=== PATIENT | female | born 2000 | race Caucasian/White ===

== ENCOUNTER 2019-06-25 18:39 | Emergency (ER) | payer OTHER ==
--- NOTE | 2019-06-25 18:51 | ER Document Report ---
ED Medical Screen (RME) - General Chief Complaint: Leg Pain Stated Complaint: LEFT LEG PAIN Time Seen by Provider: 06/25/19 18:44 Mode of Arrival: Ambulatory Information source: Patient Notes: 19-year-old female presented to ED for complaint of pain to her left lower leg. She states is to the front and the lateral aspect of her leg. She states she went to the urgent care for this pain that is been going on for about a year and they sent her to the emergency room for Doppler. There is no pain to the back of her leg. She has not been on any recent travel she does not smoke and she has not had any recent surgeries. She does have tachycardia at 117 at this time. She states she has not had any energy drinks. She is on Invega for schizoaffective disorder. He denies any symptoms of anything but pain to the left lower leg. She states she does drink socially. She does not have any pedal edema. - HPI Onset: Other - year Onset/Duration: Persistent Quality of pain: Dull, Throbbing Severity: Moderate Pain Level: 4 Associated Symptoms: Other - Left lateral lower leg pain for a year starting today was sent over by urgent care to get a Doppler. denies: Leg swelling Exacerbated by: Denies Relieved by: Denies Similar symptoms previously: Yes Recently seen / treated by doctor: Yes - Related Data Smoking: Non-smoker - States she does vape Frequency of alcohol use: Occasional Drug Abuse: None Allergies/Adverse Reactions: aspirin Allergy (Verified 06/25/19 18:52) NSAIDS (Non-Steroidal Anti-Inflamma Allergy (Verified 06/25/19 18:53) Past Medical History - General Information source: Patient - Social History Cigarette use (# per day): No - Former Frequency of alcohol use: Occasional Drug Abuse: None Lives with: Friend Family history: Reviewed & Not Pertinent - Past Medical History Cardiac Medical History: Reports: None Pulmonary Medical History: Reports: None EENT Medical History: Reports: None Neurological Medical History: Reports: None Endocrine Medical History: Reports: None Renal/ Medical History: Reports: None Malignancy Medical History: Reports: None GI Medical History: Reports: None Musculoskeltal Medical History: Reports None Psychiatric Medical History: Reports: Hx Schizoaffective Disorder Traumatic Medical History: Reports: None Infectious Medical History: Reports: None Past Surgical History: Reports: Other - Skin tumor removed - Immunizations Immunizations up to date: Yes Review of Systems - Review of Systems Constitutional: No symptoms reported EENT: No symptoms reported Cardiovascular: No symptoms reported Respiratory: No symptoms reported Gastrointestinal: No symptoms reported Genitourinary: No symptoms reported Female Genitourinary: No symptoms reported Musculoskeletal: Other - Left lower leg pain lateral and anterior portion no posterior calf pain Skin: No symptoms reported Hematologic/Lymphatic: No symptoms reported Neurological/Psychological: No symptoms reported -: Yes All other systems reviewed and negative Physical Exam - Vital signs Vitals: Temp Pulse Resp BP Pulse Ox 98.2 F 111 H 18 144/78 H 98 06/25/19 18:40 06/25/19 18:40 06/25/19 18:40 06/25/19 18:40 06/25/19 18:40 Interpretation: Normal - General General appearance: Appears well, Alert - HEENT Head: Normocephalic, Atraumatic Eyes: Normal Pupils: PERRL - Respiratory Respiratory status: No respiratory distress Chest status: Nontender Breath sounds: Normal Chest palpation: Normal - Cardiovascular Rhythm: Regular Heart sounds: Normal auscultation Murmur: No - Abdominal Inspection: Normal Distension: No distension Bowel sounds: Normal Tenderness: Nontender Organomegaly: No organomegaly - Back Back: Normal, Nontender - Extremities General upper extremity: Normal inspection, Nontender, Normal color, Normal ROM, Normal temperature General lower extremity: Nontender, Normal ROM. No: Pernell's sign Calf: Tender - Left lateral and anterior leg Ankle: Normal, Nontender Foot: Normal, Nontender - Neurological Neuro grossly intact: Yes Cognition: Normal Orientation: AAOx4 [place] Coma Scale Eye Opening: Spontaneous [place] Coma Scale Verbal: Oriented [place] Coma Scale Motor: Obeys Commands [place] Coma Scale Total: 15 Speech: Normal Motor strength normal: LUE, RUE, LLE, RLE Sensory: Normal - Psychological Associated symptoms: Normal affect, Normal mood - Skin Skin Temperature: Warm Skin Moisture: Dry Skin Color: Normal Course - Re-evaluation Re-evalutation: 06/25/19 20:48 Discussed x-ray and Doppler with patient. Patient was instructed to follow-up with her primary doctor as there is no obvious reasons for her leg pain. There is no bruising no injuries. Pulse is no longer tachycardic. She states she has had this pain for about a year it was just worse today. Patient verbalized understanding and agreement with treatment plan patient was discharged home. - Vital Signs Vital signs: Temp Pulse Resp BP Pulse Ox 98.2 F 111 H 18 144/78 H 98 06/25/19 18:40 06/25/19 18:40 06/25/19 18:40 06/25/19 18:40 06/25/19 18:40 - Diagnostic Test Radiology reviewed: Image reviewed, Reports reviewed Doctor's Discharge - Discharge Clinical Impression: Leg pain Qualifiers: Laterality: left Qualified Code(s): M79.605 - Pain in left leg Condition: Stable Disposition: HOME, SELF-CARE Additional Instructions: Leg Pain, Nonspecific We did not find an obvious cause for your leg pain. There's no sign of blood clot, infection, or other serious disease. Possible causes of vague leg pain include muscle or joint inflammation, disc disease in the lower back, pressure on the nerves in the back, or reduced blood flow through the arteries of the leg. Rest the leg. Pain can be eased with an antiinflammatory pain medicine such as ibuprofen. If the pain involves a small area, a heating pad might help. Call the doctor or return if the leg becomes swollen, weak, discolored, or increasingly painful, or if you develop any other significant change in your health. Today and Dopplers were negative. I did show you pictures of your x-ray and give you a written report of your x-ray. I am not sure of the reason for your leg pain so you will need to follow-up with your primary care doctor. I have repeated your vital signs and you are no longer tachycardic your pulse is now 77 Acetaminophen Acetaminophen may be taken for pain relief or fever control. It's much safer than aspirin, offering a wider range of "safe" dosages. It is safe during . Some brand names are Tylenol, Panadol, Datril, Anacin 3, Tempra, and Liquiprin. Acetaminophen can be repeated every four hours. The following are maximum recommended dosages: WEIGHT Dose Drops Elixir Chewable(80mg) (LBS.) drprs=droppers tsp=teaspoon 6 40 mg .4 ml (1/2) 6-11 80 mg .8 ml (full) 1/2 tsp 1 tab 12-16 120 mg 1 1/2 drprs 3/4 tsp 1 1/2 tabs 17-23 160 mg 2 drprs 1 tsp 2 tabs 24-30 240 mg 3 drprs 1 1/2 tsp 3 tabs 30-35 320 mg 2 tsp 4 tabs 36-41 360 mg 2 1/4 tsp 4 1/2 tabs 42-47 400 mg 2 1/2 tsp 5 tabs 48-53 480 mg 3 tsp 6 tabs 54-59 520 mg 3 1/4 tsp 6 1/2 tabs 60-64 560 mg 3 1/2 tsp 7 tabs 65-70 600 mg 3 3/4 tsp 7 1/2 tabs 71-76 640 mg 4 tsp 8 tabs 77-82 720 mg 4 1/2 tsp 9 tabs 83-88 800 mg 5 tsp 10 tabs >89 pounds or adults 650 mg to 900 mg Acetaminophen can be repeated every four hours. Maximum daily dose not to exceed 4000 mg. These maximum recommended dosages are slightly higher than the dosages written on the product container, but these dosages are very safe and well below the toxic dosage for acetaminophen. Ibuprofen Ibuprofen is an excellent, safe drug for pain control. In addition, it has potent antiinflammatory effects which are beneficial, especially in the treatment of injuries, arthritis, or tendonitis. It's best to take ibuprofen with food. Persons with ulcer disease or allergy to aspirin should notify their physician of this before taking ibuprofen. Take the medication exactly as prescribed. Don't take additional doses unless instructed to do so by your doctor. If you develop wheezing, shortness of breath, hives, faintness, stomach pain, vomiting, or dark black stools, return for re-evaluation at once. Ice & Elevation Apply ice packs frequently against the painful area. Many different schedules are recommended, such as "20 minutes on, 20 minutes off" or "one hour ice, two hours rest." If you need to work, you may need to go longer between ice treatments. You should plan to have the area ice packed AT LEAST one-fourth of the time. The ice should be applied over the wrap, tape, or splint, or over a layer of cloth -- not directly against the skin. Some ice bags have a built-in cloth and can be put directly on the skin. Your injured part should be elevated as much as possible over the next 48 hours. Try to keep the injury above the level of the heart. Avoid use of the injured area. Elevation and rest will decrease the swelling. FOLLOW-UP CARE: If you have been referred to a physician for follow-up care, call the physicians office for an appointment as you were instructed or within the next two days. If you experience worsening or a significant change in your symptoms, notify the physician immediately or return to the Emergency Department at any time for re-evaluation. Forms: Elevated Blood Pressure Referrals: SHARON DOMINGUEZ MD [Primary Care Provider] - Follow up in 3-5 days
--- NOTE | 2019-06-25 19:15 | RADIOLOGY REPORT (SQ) ---
EXAM DESCRIPTION: TIBIA FIBULA LEFT COMPLETED DATE/TIME: 06/25/2019 7:08 pm REASON FOR STUDY: pain in left lower leg COMPARISON: None. NUMBER OF VIEWS: Two views. TECHNIQUE: Two radiographic images acquired of the left tibia and fibula to include the knee and ank le in at least one projection. LIMITATIONS: None. FINDINGS: MINERALIZATION: Normal. BONES: No acute fracture or dislocation. No worrisome bone lesions. No significant osteophytes. SOFT TISSUES: No obvious swelling or foreign body. OTHER: No other significant finding. IMPRESSION: NEGATIVE STUDY OF THE LEFT TIBIA AND FIBULA. NO EXPLANATION FOR PAIN. TECHNICAL DOCUMENTATION: JOB ID: [id number] [employer]- All Rights Reserved Reading location - IP/workstation name: [email or web address]
[2019-06-25] MEDS ORDERED: ACETAMINOPHEN 325 MG TABLET PO ONE (19:24)
[2019-06-25 20:47] VITALS: BP 119/72
--- NOTE | 2019-06-26 08:08 | XCELERA REPORT ---
[address] [place] [facility] [id number] Lower Extremity Venous Evaluation Procedure: Color flow and duplex imaging of the veins of the left lower extremity as well as the right Common Femoral vein. Right Sided Venous Evaluation The right common femoral vein is fully compressible. Spontaneous and phasic flow is present in the right common femoral vein. Left Sided Venous Evaluation Normal vessel filling wall to wall, compression and augmentation as well as Colour flow down to the infrageniculate veins. Interpretation Summary No duplex evidence of DVT or obstruction in the left lower extremity nor in the right Common Femoral vein. Name: MAY CASSY A Age: 19 yrs Gender: Female : 2000 Patient Status: Emergency Patient Location: ER Study Date: 06/25/2019 08:19 PM Reason For Study: left lower leg Ordering Physician: CHUCKY WALLER Performed By: Smiley Coppola : CHUCKY WALLER > Arpit Quiros
== END 2019-06-25 20:55 | disposition home or self-care (01) ==
LOC: ER 18:39
DX: M79.662 Pain in left lower leg (principal); R00.0 Tachycardia, unspecified; F25.9 Schizoaffective disorder, unspecified; Z79.899 Other long term (current) drug therapy; Z88.8 Allergy status to other drugs, medicaments and biological substances
CPT/HCPCS: 93971; 99283

== ENCOUNTER 2019-07-23 20:15 | Emergency (ER) | payer OTHER ==
[2019-07-23 20:40] VITALS: BP 114/70
--- NOTE | 2019-07-23 20:58 | ER Document Report ---
ED Medical Screen (RME) - General Stated Complaint: BILATERAL ARM PIT PAIN Time Seen by Provider: 07/23/19 20:55 Primary Care Provider: SHARON DOMINGUEZ MD [Primary Care Provider] - Follow up as needed Notes: 19 y/o female presents for 1.5 week history of bilateral arm pit swelling. States she thinks her lymph nodes are swollen. Denies fever. States she feels bumps. Bilateral arm pit exam limited in triage but do not feel overly swollen. I have greeted and performed a rapid initial assessment of this patient. A comprehensive ED assessment and evaluation of the patient, analysis of test results and completion of the medical decision making process with be conducted by additional ED providers. TRAVEL OUTSIDE OF THE [place] IN LAST 30 DAYS: No - Related Data Allergies/Adverse Reactions: aspirin Allergy (Verified 06/25/19 18:52) NSAIDS (Non-Steroidal Anti-Inflamma Allergy (Verified 06/25/19 18:53) Past Medical History - Social History Family history: Reviewed & Not Pertinent Psychiatric Medical History: Reports: Hx Schizoaffective Disorder, Hx Schizophrenia Past Surgical History: Reports: Other - Skin tumor removed - Immunizations Immunizations up to date: Yes Physical Exam - Vital signs Vitals: Temp Pulse Resp BP Pulse Ox 98.6 F 79 20 114/70 100 07/23/19 20:39 07/23/19 20:39 07/23/19 20:39 07/23/19 20:39 07/23/19 20:39 Course - Vital Signs Vital signs: Temp Pulse Resp BP Pulse Ox 98.6 F 79 20 114/70 100 07/23/19 20:39 07/23/19 20:39 07/23/19 20:39 07/23/19 20:39 07/23/19 20:39 Doctor's Discharge - Discharge Referrals: SHARON DOMINGUEZ MD [Primary Care Provider] - Follow up as needed
[2019-07-23 21:26] LABS: ABSOLUTE BASOPHILS # (AUTO) 0.1 10^3/uL (0.0-0.2); ABSOLUTE EOSINOPHILS # (AUTO) 0.8 10^3/uL (0.0-0.6); ABSOLUTE MONOCYTES (AUTO) 0.6 10^3/uL (0.1-1.4); ABSOLUTE NEUT (AUTO) 6.6 10^3/uL (1.7-8.2); BASOPHILS % (AUTO) 0.9 % (0-2); EOSINOPHILS % (AUTO) 6.8 % (0-6); HEMATOCRIT 42.3 % (36.0-47.0); HEMOGLOBIN 14.6 g/dL (12.0-15.5); LYMPHOCYTES % (AUTO) 27.3 % (13-45); MEAN CORPUSCULAR HGB CONC 34.4 g/dL (32.0-36.0); MEAN CORPUSCULAR VOLUME 87 fl (80-97); MONOCYTES % (AUTO) 5.8 % (3-13); PLATELET COUNT 311 10^3/uL (150-450); RED BLOOD COUNT 4.85 10^6/uL (3.72-5.28); RED CELL DISTRIBUTION WIDTH 12.4 % (11.5-14.0); SEGMENTED NEUTROPHILS % (AUTO) 59.2 % (42-78); TOTAL CELLS COUNTED % (AUTO) 100 %; WHITE BLOOD COUNT 11.1 10^3/uL (4.0-10.5)
[2019-07-23 21:38] LABS: ALBUMIN 4.8 g/dL (3.5-5.0); ALKALINE PHOSPHATASE 57 U/L (38-126); ANION GAP 11 (5-19); ASPARTATE AMINO TRANSFERASE 25 U/L (14-36); BILIRUBIN,TOTAL 0.5 mg/dL (0.2-1.3); BLOOD UREA NITROGEN 14 mg/dL (7-20); CALCIUM 10.2 mg/dL (8.4-10.2); CARBON DIOXIDE 25 mmol/L (22-30); CHLORIDE 103 mmol/L (98-107); GLUCOSE 95 mg/dL (75-110); POTASSIUM 4.3 mmol/L (3.6-5.0); TOTAL PROTEIN 7.4 g/dL (6.3-8.2)
== END 2019-07-24 01:52 | disposition left against medical advice (07) ==
LOC: ER 20:15
DX: M79.622 Pain in left upper arm (principal); M79.621 Pain in right upper arm; Z88.8 Allergy status to other drugs, medicaments and biological substances; Z53.20 Procedure and treatment not carried out because of patient's decision for unspecified reasons
CPT/HCPCS: 36415; 80053; 84703; 85025; 99281

== ENCOUNTER 2019-08-12 18:30 | Emergency (ER) | payer OTHER ==
--- NOTE | 2019-08-12 20:13 | ER Document Report ---
ED Medical Screen (RME) - General Stated Complaint: ABDOMINAL PAIN Time Seen by Provider: 08/12/19 20:06 Primary Care Provider: SHARON DOMINGUEZ MD [Primary Care Provider] - Follow up as needed Mode of Arrival: Ambulatory Information source: Patient Notes: 19-year-old female with history of schizoaffective disorder presents to the emergency department with sudden onset abdominal pain that started this afternoon. Reports she took a nap and woke up and her abdomen was hurting. She denies fever vomiting diarrhea. Denies pain with void. Denies chronic abdominal issues. Denies . She does report that she was at the [facility] earlier today and they did a biopsy of something on her vaginal area. Patient reports she took a Tylenol did help with the symptoms. Patient was requesting an MRI to make sure everything was okay. She was instructed on labs and urine to check for an infection. She verbalized understanding to all instructions. I have greeted and performed a rapid initial assessment of this patient. A comprehensive ED assessment and evaluation of the patient, analysis of test results and completion of the medical decision making process will be conducted by additional ED providers. TRAVEL OUTSIDE OF THE [place] IN LAST 30 DAYS: No - Related Data Allergies/Adverse Reactions: aspirin Allergy (Verified 06/25/19 18:52) NSAIDS (Non-Steroidal Anti-Inflamma Allergy (Verified 06/25/19 18:53) Past Medical History - Social History Family history: Reviewed & Not Pertinent Psychiatric Medical History: Reports: Hx Schizoaffective Disorder, Hx Schizophrenia Past Surgical History: Reports: Other - Skin tumor removed - Immunizations Immunizations up to date: Yes Physical Exam - Vital signs Vitals: Temp Pulse Resp BP Pulse Ox 98.6 F 90 16 130/72 H 98 08/12/19 18:37 08/12/19 18:37 08/12/19 18:37 08/12/19 18:37 08/12/19 18:37 Course - Vital Signs Vital signs: Temp Pulse Resp BP Pulse Ox 98.6 F 90 16 130/72 H 98 08/12/19 18:37 08/12/19 18:37 08/12/19 18:37 08/12/19 18:37 08/12/19 18:37 Doctor's Discharge - Discharge Referrals: SHARON DOMINGUEZ MD [Primary Care Provider] - Follow up as needed
[2019-08-12 20:50] LABS: ABSOLUTE BASOPHILS # (AUTO) 0.1 10^3/uL (0.0-0.2); ABSOLUTE EOSINOPHILS # (AUTO) 0.8 10^3/uL (0.0-0.6); ABSOLUTE MONOCYTES (AUTO) 0.6 10^3/uL (0.1-1.4); ABSOLUTE NEUT (AUTO) 5.1 10^3/uL (1.7-8.2); BASOPHILS % (AUTO) 0.7 % (0-2); HEMATOCRIT 42.2 % (36.0-47.0); HEMOGLOBIN 14.9 g/dL (12.0-15.5); LYMPHOCYTES % (AUTO) 31.9 % (13-45); MEAN CORPUSCULAR HEMOGLOBIN 30.5 pg (27.0-33.4); MEAN CORPUSCULAR HGB CONC 35.4 g/dL (32.0-36.0); MEAN CORPUSCULAR VOLUME 86 fl (80-97); MONOCYTES % (AUTO) 6.1 % (3-13); PLATELET COUNT 284 10^3/uL (150-450); RED CELL DISTRIBUTION WIDTH 12.6 % (11.5-14.0); SEGMENTED NEUTROPHILS % (AUTO) 53.3 % (42-78); TOTAL CELLS COUNTED % (AUTO) 100 %; WHITE BLOOD COUNT 9.5 10^3/uL (4.0-10.5)
[2019-08-12 20:51] LABS: APPEARANCE,URINE SLIGHTLY-CLOUDY; BILIRUBIN,URINE NEGATIVE (NEGATIVE); COLOR,URINE YELLOW; GLUCOSE, URINE NEGATIVE (NEGATIVE); KETONES,URINE NEGATIVE (NEGATIVE); LEUKOCYTE ESTERASE,URINE TRACE (NEGATIVE); NITRITE,URINE NEGATIVE (NEGATIVE); PROTEIN,URINE NEGATIVE (NEGATIVE); URINE SPECIFIC GRAVITY 1.008; UROBILINOGEN,URINE NEGATIVE mg/dL (<2.0)
[2019-08-12 21:02] LABS: ADD MANUAL MICROSCOPIC YES; BACTERIA,URINE TRACE /HPF; RBC,URINE 0-1 /HPF
[2019-08-12 21:10] LABS: ALBUMIN 4.9 g/dL (3.5-5.0); ALKALINE PHOSPHATASE 63 U/L (38-126); ANION GAP 12 (5-19); ASPARTATE AMINO TRANSFERASE 30 U/L (14-36); BILIRUBIN,DIRECT 0.3 mg/dL (0.0-0.4); BILIRUBIN,TOTAL 0.4 mg/dL (0.2-1.3); BLOOD UREA NITROGEN 6 mg/dL (7-20); CALCIUM 10.1 mg/dL (8.4-10.2); CARBON DIOXIDE 28 mmol/L (22-30); CHLORIDE 101 mmol/L (98-107); GLUCOSE 86 mg/dL (75-110); POTASSIUM 4.6 mmol/L (3.6-5.0); TOTAL PROTEIN 8.2 g/dL (6.3-8.2)
--- NOTE | 2019-08-12 21:38 | ER Document Report ---
ED GI/ - General Chief Complaint: Abdominal Pain Stated Complaint: ABDOMINAL PAIN Time Seen by Provider: 08/12/19 20:06 Primary Care Provider: SHARON DOMINGUEZ MD [Primary Care Provider] - Follow up in 3-5 days Mode of Arrival: Ambulatory Notes: Patient is a 19-year-old female that comes to the emergency department for chief complaint of abdominal pain. She states she woke up with abdominal pain this evening. She states she did have a "vulvar biopsy" by [facility] RN today, she states she did not have a pelvic exam or any internal or cervical biopsies. She states she is not bleeding or having any discharge. She denies dysuria, flank pain, fever, vomiting. She reports normal bowel movement earlier. She denies any abdominal surgeries, she does report a history of ovarian cysts, she states she is sexually active with only her and she is not concerned she has an STD. She states she is hoping that she can "get an MRI of the abdomen to make sure everything is okay". Patient does have a history of schizoaffective disorder. TRAVEL OUTSIDE OF THE [place] IN LAST 30 DAYS: No - Related Data Allergies/Adverse Reactions: aspirin Allergy (Verified 06/25/19 18:52) NSAIDS (Non-Steroidal Anti-Inflamma Allergy (Verified 06/25/19 18:53) Home Medications: Invega Past Medical History - General Information source: Patient - Social History Smoking Status: Current Every Day Smoker Chew tobacco use (# tins/day): No Frequency of alcohol use: None Drug Abuse: None Lives with: Family Family History: Reviewed & Not Pertinent Patient has suicidal ideation: No Patient has homicidal ideation: No Psychiatric Medical History: Reports: Hx Schizoaffective Disorder, Hx Schizophrenia Past Surgical History: Reports: Other - Skin tumor removed - Immunizations Immunizations up to date: Yes Review of Systems - Review of Systems Constitutional: No symptoms reported EENT: No symptoms reported Cardiovascular: No symptoms reported Respiratory: No symptoms reported Gastrointestinal: See HPI Genitourinary: No symptoms reported Female Genitourinary: See HPI Musculoskeletal: No symptoms reported Skin: No symptoms reported Hematologic/Lymphatic: No symptoms reported Neurological/Psychological: No symptoms reported Physical Exam - Vital signs Vitals: Temp Pulse Resp BP Pulse Ox 98.6 F 90 16 130/72 H 98 08/12/19 18:37 08/12/19 18:37 08/12/19 18:37 08/12/19 18:37 08/12/19 18:37 - Notes Notes: GENERAL: Alert, interacts well. No acute distress. HEAD: Normocephalic, atraumatic. EYES: Pupils equal, round, and reactive to light. Extraocular movements intact. ENT: Oral mucosa moist, tongue midline. Oropharynx unremarkable. Airway patent. LUNGS: Clear to auscultation bilaterally, no wheezes, rales, or rhonchi. No respiratory distress. HEART: Regular rate and rhythm. No murmur ABDOMEN: There is some mild generalized tenderness, there appears to be slightly more tenderness in the left lower quadrant but there is no guarding. No rigidity. No rebound tenderness. Normal bowel sounds. GENITOURINARY: Deferred EXTREMITIES: Moves all 4 extremities spontaneously. No edema, normal radial and dorsalis pedis pulses bilaterally. No cyanosis. BACK: no cervical, thoracic, lumbar midline tenderness. No saddle anesthesia, normal distal neurovascular exam. Moves all extremities in full range of motion. NEUROLOGICAL: Alert and oriented x3. Normal speech. Cranial nerves II through X II grossly intact. PSYCH: Normal affect, normal mood. Asks questions repeatedly SKIN: Warm, dry, normal turgor. No rashes or lesions noted. Course - Re-evaluation Re-evalutation: Patient is talkative and well-appearing. CBC unremarkable, chemistry unremarkable, negative, urinalysis slightly borderline. I recommended a pelvic exam because of patient's location of pain (lower abdominal/pelvic area on the left especially), she declined. She states she wants imaging to make sure "nothing is wrong. I did offer a KUB and ultrasound to evaluate her overall symptoms, however patient refused. Patient insists that she needs an MRI of the abdomen. I discussed this with her. She states that if her biopsy comes back as cancer she needs to make sure that she does not have a mass in her abdomen. Patient has no difficulty with bowel movements, denies weight loss, fever/chills, or family history of either melanoma, colon cancer, or other reported cancers. In addition to this patient has a benign abdomen, unremarka ble vital signs, unremarkable work-up, and I have very low suspicion of acute abdomen. Explained to her that MRI is not the initial test, she needs to obtain results from biopsy, I did recommend the x-ray and ultrasound to evaluate her symptoms today. Patient states understanding and agreement. Patient changed her mind, she states she does not want any imaging offered and she wants to leave. Patient was provided with discharge instructions, follow-up instructions, return precautions. Stable at time of discharge. - Vital Signs Vital signs: Temp Pulse Resp BP Pulse Ox 98.5 F 84 20 129/68 H 100 08/12/19 22:10 08/12/19 22:10 08/12/19 22:10 08/12/19 22:10 08/12/19 22:10 - Laboratory Result Diagrams: 08/12/19 20:23 08/12/19 20:23 Laboratory results interpreted by me: 08/12/19 08/12/19 08/12/19 20:23 20:23 20:23 Eos % (Auto) 8.0 H Absolute Eos (auto) 0.8 H BUN 6 L Urine Blood SMALL H Ur Leukocyte Esterase TRACE H Urine Ascorbic Acid 40 H Discharge - Discharge Clinical Impression: Abdominal pain Qualifiers: Abdominal location: generalized Qualified Code(s): R10.84 - Generalized abdominal pain Condition: Stable Disposition: HOME, SELF-CARE Additional Instructions: Your initial evaluation, vital signs, and work-up are reassuring. You have declined offered imaging at this time. Follow-up with your primary care for additional evaluation of abdominal pain and to obtain your results from your biopsy. Return if you worsen including returned/severe worsening pain, fever, vomiting, or any other concerning or worsening symptoms. Referrals: SHARON DOMINGUEZ MD [Primary Care Provider] - Follow up in 3-5 days
[2019-08-12 22:17] VITALS: BP 126/68
== END 2019-08-12 22:10 | disposition home or self-care (01) ==
LOC: ER 18:30
DX: R10.84 Generalized abdominal pain (principal); F17.200 Nicotine dependence, unspecified, uncomplicated; F25.9 Schizoaffective disorder, unspecified; Z79.899 Other long term (current) drug therapy; Z98.890 Other specified postprocedural states; Z88.8 Allergy status to other drugs, medicaments and biological substances
CPT/HCPCS: 36415; 80053; 81001; 81025; 85025; 99284

== ENCOUNTER → 2019-09-10 | Outpatient (CLI) | payer OTHER ==
--- NOTE | 2019-09-10 10:18 | RADIOLOGY REPORT (SQ) ---
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 TECHNIQUE: Multiplanar imaging includes noncontrasted T1, T2, FLAIR, diffusion with ADC map and post gadolinium contrast T1 sequences. Images stored on PACS. CONTRAST TYPE AND DOSE: 15 mL Dotarem. RENAL FUNCTION: Not indicated. ACR Type II contrast agent associated with few, if any, unconfounded cases of NSF LIMITATIONS: None. FINDINGS: ANATOMY: No anomalies. Normal vascular flow voids. Pituitary fossa normal. Normal enhance ment of the pituitary gland. No evidence of micro or macroadenoma. CSF SPACES: Normal in size and contour. No hemorrhage. CEREBRUM: Sulci and gyri normal in size and contour. Normal white matter signal on FLAIR imaging. No evidence of hemorrhage, mass, or extraaxial fluid collection. No abnormal enhancement post contrast. POSTERIOR FOSSA: No signal alteration. No hemorrhage. No edema, masses, or mass effect. Internal hillary tory canals, cerebellopontine angles, mastoids normal. No enhancing lesions. No abnormal enhancement post contrast. DIFFUSION IMAGING: Negative for acute or subacute infarction. ORBITS: No masses. Globes normal. PARANASAL SINUSES: No fluid levels. Mucosa normal. OTHER: No other significant finding. IMPRESSION: Normal MRI the brain with and without contrast with thin-section images through the pitu itary gland. EVIDENCE OF ACUTE STROKE: NO. TECHNICAL DOCUMENTATION: JOB ID: [id number] 2010 [employer]- All Rights Reserved Reading location - IP/workstation name: [email or web address]
== END ==
LOC: RAD 08:55
PROVIDERS: ATTEND Obstetrics & Gynecology Gynecology
DX: E22.1 Hyperprolactinemia (principal)
CPT/HCPCS: 70553; A9576

== ENCOUNTER 2019-10-29 23:17 | Emergency (ER) | payer OTHER ==
--- NOTE | 2019-10-30 00:35 | ER Document Report ---
HPI - HPI Patient complains to provider of: Concern about tattoo Onset: This evening Onset/Duration: Gradual Pain Level: Denies Context: Patient states she had a tattoo performed in someone's home. Patient states that during the session the tone artist apprentice told her that he does lots of tattoos on IV drug abusers. Patient is uncertain if the equipment was sterilized and is concerned that she may have been exposed to hepatitis or HIV and would like to be tested. Patient also is seeking postexposure treatment for HIV. Patient states that she has previously received a hepatitis B vaccination. Associated Symptoms: None Exacerbated by: Denies Similar symptoms previously: No Recently seen / treated by doctor: No - ROS ROS below otherwise negative: Yes Systems Reviewed and Negative: Yes All other systems reviewed and negative - CONSTITUTIONAL Constitutional: DENIES: Fever, Chills - REPRODUCTIVE Reproductive: DENIES: : - DERM Skin Color: Normal Skin Problems: None Past Medical History - General Information source: Patient - Social History Smoking Status: Current Every Day Smoker Frequency of alcohol use: Occasional Drug Abuse: None Occupation: None Family History: Reviewed & Not Pertinent Psychiatric Medical History: Reports: Hx Schizoaffective Disorder, Hx Schi zophrenia Surgical Hx: Negative Past Surgical History: Reports: Other - Skin tumor removed - Immunizations Immunizations up to date: Yes Vertical Provider Document - CONSTITUTIONAL Agree With Documented VS: Yes Exam Limitations: No Limitations General Appearance: WD/WN, No Apparent Distress - INFECTION CONTROL TRAVEL OUTSIDE OF THE [place] IN LAST 30 DAYS: No - HEENT HEENT: Atraumatic, Normocephalic - NECK Neck: Normal Inspection - RESPIRATORY Respiratory: Breath Sounds Normal, No Respiratory Distress - CARDIOVASCULAR Cardiovascular: Regular Rate, Regular Rhythm - NEURO Level of Consciousness: Awake, Alert, Appropriate Motor/Sensory: No Motor Deficit - DERM Integumentary: Warm, Dry Notes: New tattoo to right anterior shoulder with minimal erythema surrounding site Course - Re-evaluation Re-evalutation: 10/30/19 00:35 Patient concerned about possible exposure to HIV and hepatitis and would like to be screened and started on postexposure prophylaxis at this time. 10/30/19 01:43 Patient without any liver function abnormality and is not . Will start patient on postexposure prophylaxis per her request. Patient be encouraged to follow-up with her primary doctor or the health department for additional treatment. - Vital Signs Vital signs: Temp Pulse Resp BP Pulse Ox 98.1 F 103 H 15 135/76 H 97 10/30/19 00:07 10/30/19 00:07 10/30/19 00:07 10/30/19 00:07 10/30/19 00:07 - Laboratory Result Diagrams: 10/30/19 01:04 10/30/19 01:04 Discharge - Discharge Clinical Impression: Tattoo, concern about blood borne pathogen expos Condition: Stable Disposition: HOME, SELF-CARE Instructions: H.I.V. Information ([facility]) Additional Instructions: Return immediately for any new or worsening symptoms Followup with your primary care provider, call tomorrow to make a followup appointment. You may need to stay on the antivirals for at least a month, your primary doctor can refill this medication for you. Hepatitis panel is pending at this time. Prescriptions: Raltegravir Potassium [Isentress 400 mg Tablet] 400 mg PO BID #14 tablet Emtricitabine/Tenofovir [Truvada Tablet] 1 each PO DAILY #7 tablet Referrals: SHARON DOMINGUEZ MD [Primary Care Provider] - Follow up tomorrow
[2019-10-30 01:23] LABS: ABSOLUTE EOSINOPHILS # (AUTO) 0.4 10^3/uL (0.0-0.6); ABSOLUTE LYMPHOCYTES (AUTO) 3.3 10^3/uL (0.5-4.7); ABSOLUTE NEUT (AUTO) 7.2 10^3/uL (1.7-8.2); BASOPHILS % (AUTO) 0.4 % (0-2); EOSINOPHILS % (AUTO) 3.2 % (0-6); HEMOGLOBIN 13.8 g/dL (12.0-15.5); LYMPHOCYTES % (AUTO) 27.8 % (13-45); MEAN CORPUSCULAR HEMOGLOBIN 30.8 pg (27.0-33.4); MEAN CORPUSCULAR HGB CONC 36.3 g/dL (32.0-36.0); MEAN CORPUSCULAR VOLUME 85 fl (80-97); MONOCYTES % (AUTO) 8.4 % (3-13); PLATELET COUNT 288 10^3/uL (150-450); RED BLOOD COUNT 4.49 10^6/uL (3.72-5.28); RED CELL DISTRIBUTION WIDTH 12.5 % (11.5-14.0); SEGMENTED NEUTROPHILS % (AUTO) 60.2 % (42-78); TOTAL CELLS COUNTED % (AUTO) 100 %
[2019-10-30 01:39] LABS: ALBUMIN 4.8 g/dL (3.5-5.0); ALKALINE PHOSPHATASE 67 U/L (38-126); ANION GAP 10 (5-19); ASPARTATE AMINO TRANSFERASE 25 U/L (14-36); BILIRUBIN,TOTAL 0.4 mg/dL (0.2-1.3); BLOOD UREA NITROGEN 12 mg/dL (7-20); CALCIUM 9.7 mg/dL (8.4-10.2); CARBON DIOXIDE 26 mmol/L (22-30); CHLORIDE 104 mmol/L (98-107); GLUCOSE 93 mg/dL (75-110); POTASSIUM 4.1 mmol/L (3.6-5.0); TOTAL PROTEIN 7.8 g/dL (6.3-8.2)
[2019-10-30] MEDS ORDERED: EMTRICITABINE/TENOFOVIR 200-300 MG TAB (3 TAB/ER DISP) PO PRN (02:52)
[2019-10-30] MEDS ORDERED: RALTEGRAVIR 400 MG TAB (6 TAB/ER DISP) PO PRN (02:52)
[2019-10-30 03:23] VITALS: BP 130/72
[2019-10-31 07:38] LABS: HEPATITS B SURFACE ANTIGEN Negative (Negative)
[2019-10-31 08:36] LABS: HEPATITIS C VIRUS ANTIBODY <0.1 s/co ratio (0.0-0.9)
== END 2019-10-30 03:23 | disposition home or self-care (01) ==
LOC: ER 23:17
DX: Z20.6 Contact with and (suspected) exposure to human immunodeficiency virus [HIV] (principal); Z20.5 Contact with and (suspected) exposure to viral hepatitis; Z11.4 Encounter for screening for human immunodeficiency virus [HIV]; Z13.89 Encounter for screening for other disorder; F17.200 Nicotine dependence, unspecified, uncomplicated
CPT/HCPCS: 36415; 80053; 80074; 84703; 85025; 86701; 99283

== ENCOUNTER 2019-12-12 23:40 | Emergency (ER) | payer OTHER ==
--- NOTE | 2019-12-13 00:26 | ER Document Report ---
ED Medical Screen (RME) - General Chief Complaint: Blurred Vision Stated Complaint: BLURRY VISION Primary Care Provider: SHARON DOMINGUEZ MD [Primary Care Provider] - Follow up as needed Notes: Patient is a 19-year-old white female with a history of schizoaffective disorder and autism spectrum who presents to the emergency department with a chief complaint of seizure that occurred prior to arrival. Patient reports she had a few seizures as a small child but was never diagnosed formally with epilepsy or told why these occurred. She does not take any seizure medications. She states tonight she was sitting on the couch watching TV when she had blurry vision in the right medial half of her vision in the right eye. She called her from the other room, he told her to lie down and then she states she does not recall what happened next. She states her told her when she came to that it appeared as though she had a seizure. He reports that her eyes were rolling back in her head and she had generalized shaking. Patient does not admit to any incontinence during this. Denies any dental or tongue injuries. Denies any new medicines, drugs, alcohol or any other substances. No pains or complaints otherwise at this time with the exception of the ongoing blurred vision in the right eye. I have treated and performed a rapid initial assessment of this patient. A comprehensive ED assessment and evaluation of the patient, analysis of test results and completion of medical decision making process will be conducted by additional ED providers. PHYSICAL EXAMINATION: GENERAL: Well-appearing, well-nourished and in no acute distress. A&Ox4. Answers questions appropriately. TRAVEL OUTSIDE OF THE [place] IN LAST 30 DAYS: No - Related Data Allergies/Adverse Reactions: aspirin Allergy (Verified 10/30/19 01:09) NSAIDS (Non-Steroidal Anti-Inflamma Allergy (Verified 10/30/19 01:09) Past Medical History - Social History Family history: Reviewed & Not Pertinent Psychiatric Medical History: Reports: Hx Depression, Hx Schizoaffective Disorder, Hx Schizophrenia Past Surgical History: Reports: Other - Skin tumor removed - Immunizations Immunizations up to date: Yes Physical Exam - Vital signs Vitals: Temp Pulse Resp BP Pulse Ox 98.9 F 92 20 131/77 H 95 12/12/19 23:52 12/12/19 23:52 12/12/19 23:52 12/12/19 23:52 12/12/19 23:52 Course - Vital Signs Vital signs: Temp Pulse Resp BP Pulse Ox 98.9 F 92 20 131/77 H 95 12/12/19 23:52 12/12/19 23:52 12/12/19 23:52 12/12/19 23:52 12/12/19 23:52 Doctor's Discharge - Discharge Referrals: SHARON DOMINGUEZ MD [Primary Care Provider] - Follow up as needed
[2019-12-13 00:59] LABS: ABSOLUTE BASOPHILS # (AUTO) 0.1 10^3/uL (0.0-0.2); ABSOLUTE EOSINOPHILS # (AUTO) 0.7 10^3/uL (0.0-0.6); ABSOLUTE LYMPHOCYTES (AUTO) 3.6 10^3/uL (0.5-4.7); ABSOLUTE NEUT (AUTO) 7.4 10^3/uL (1.7-8.2); BASOPHILS % (AUTO) 0.5 % (0-2); EOSINOPHILS % (AUTO) 5.5 % (0-6); HEMATOCRIT 39.8 % (36.0-47.0); HEMOGLOBIN 13.9 g/dL (12.0-15.5); LYMPHOCYTES % (AUTO) 28.1 % (13-45); MEAN CORPUSCULAR HEMOGLOBIN 29.8 pg (27.0-33.4); MEAN CORPUSCULAR VOLUME 85 fl (80-97); MONOCYTES % (AUTO) 7.7 % (3-13); PLATELET COUNT 287 10^3/uL (150-450); RED BLOOD COUNT 4.66 10^6/uL (3.72-5.28); RED CELL DISTRIBUTION WIDTH 12.7 % (11.5-14.0); SEGMENTED NEUTROPHILS % (AUTO) 58.2 % (42-78); TOTAL CELLS COUNTED % (AUTO) 100 %; WHITE BLOOD COUNT 12.7 10^3/uL (4.0-10.5)
[2019-12-13 01:13] LABS: ALBUMIN 4.6 g/dL (3.5-5.0); ALKALINE PHOSPHATASE 75 U/L (38-126); ANION GAP 10 (5-19); ASPARTATE AMINO TRANSFERASE 24 U/L (14-36); BILIRUBIN,TOTAL 0.3 mg/dL (0.2-1.3); BLOOD UREA NITROGEN 13 mg/dL (7-20); CALCIUM 9.8 mg/dL (8.4-10.2); CARBON DIOXIDE 24 mmol/L (22-30); CHLORIDE 104 mmol/L (98-107); CREATINE KINASE 53 U/L (30-135); GLUCOSE 84 mg/dL (75-110); POTASSIUM 4.2 mmol/L (3.6-5.0); TOTAL PROTEIN 7.5 g/dL (6.3-8.2)
--- NOTE | 2019-12-13 01:42 | RADIOLOGY REPORT (SQ) ---
EXAM DESCRIPTION: XR CHEST 1 VIEW COMPLETED DATE/TME: 12/13/2019 00:23 CLINICAL HISTORY: seizure COMPARISON: None. FINDINGS: Single frontal view of the chest. Cardiomediastinal silhouette: Normal size and contour. Lungs: No consolidation, pneumothorax, or pleural effusion. Bones: No acute osseous abnormality. Upper abdomen: No abnormality identified. IMPRESSION: 1. No acute pulmonary process identified.
--- NOTE | 2019-12-13 01:45 | RADIOLOGY REPORT (SQ) ---
EXAM DESCRIPTION: CT HEAD WITHOUT IV CONTRAST COMPLETED DATE/TME: 12/13/2019 00:23 CLINICAL HISTORY: seizure, blurry vision, headache [id number] COMPARISON: None available TECHNIQUE: Axial CT of the head obtained from the skull apex to the skull base without contrast. FINDINGS: No acute intracranial hemorrhage identified. No mass, mass effect, shift of the midline, abnormal extra-axial fluid collection or CT evidence of acute ischemic change identified. The ventricular system is unremarkable. No acute abnormalities of the supratentorial white matter, basal ganglia, cerebellum, or brainstem. The visualized paranasal sinuses and the mastoids are relatively well aerated. No skull fracture identified. Visualized orbits and globes are unremarkable. IMPRESSION: 1. No acute intracranial abnormality identified. This exam was performed according to our departmental dose-optimization program, which includes automated exposure control, adjustment of the mA and/or kV according to patient size and/or use of iterative reconstruction technique.
[2019-12-13 02:01] LABS: URINE AMPHETAMINES SCREEN NEGATIVE; URINE BARBITURATES SCREEN NEGATIVE; URINE BENZODIAZEPINES SCREEN NEGATIVE; URINE COCAINE SCREEN NEGATIVE; URINE MARIJUANA (THC) SCREEN NEGATIVE; URINE METHADONE SCREEN NEGATIVE; URINE PHENCYCLIDINE SCREEN NEGATIVE
[2019-12-13 04:15] VITALS: BP 110/60
--- NOTE | 2019-12-13 05:34 | ER Document Report ---
Entered by DANNIE FORD SCRIBE 12/13/19 0344 Acting as scribe for:SUHAIL FLOWERS IV, MD ED General - General Chief Complaint: Probable Seizure Stated Complaint: BLURRY VISION Time Seen by Provider: 12/13/19 03:29 Primary Care Provider: SHARON DOMINGUEZ MD [Primary Care Provider] - 12/15/19 Mode of Arrival: Ambulatory Information source: Patient Notes: This 19 year old female patient presents to the ED today with complaints of blurred vision that started prior to arrival. Patient states that she was watching tv when the vision in her right eye "went black." She reports that her advised her to lay down to see if her vision improved. She states that her told her that she began to have seizure-like activity after she laid down; patient does not recall this incident. She reports a history of seizures as a kid, but denies history of CVA or MS. She notes that she usually wears glasses; however, her vision was not improved by wearing them. TRAVEL OUTSIDE OF THE [place] IN LAST 30 DAYS: No - Related Data Allergies/Adverse Reactions: aspirin Allergy (Verified 10/30/19 01:09) NSAIDS (Non-Steroidal Anti-Inflamma Allergy (Verified 10/30/19 01:09) Past Medical History - General Information source: Patient, [facility] Records - Social History Smoking Status: Former Smoker Cigarette use (# per day): No Chew tobacco use (# tins/day): No Smoking Education Provided: No Lives with: Spouse/Significant other Family History: Reviewed & Not Pertinent Patient has suicidal ideation: No Patient has homicidal ideation: No Psychiatric Medical History: Reports: Hx Depression, Hx Schizoaffective Disorder, Hx Schizophrenia Past Surgical History: Reports: Other - Skin tumor removed - Immunizations Immunizations up to date: Yes Review of Systems - Review of Systems Constitutional: No symptoms reported EENT: See HPI, Blurred vision Cardiovascular: No symptoms reported Respiratory: No symptoms reported Gastrointestinal: No symptoms reported Genitourinary: No symptoms reported Female Genitourinary: No symptoms reported Musculoskeletal: No symptoms reported Skin: No symptoms reported Hematologic/Lymphatic: No symptoms reported Neurological/Psychological: See HPI, Seizure -: Yes All other systems reviewed and negative Physical Exam - Vital signs Vitals: Temp Pulse Resp BP Pulse Ox 98.9 F 92 20 131/77 H 95 07/10/20 23:52 12/12/19 23:52 12/12/19 23:52 12/12/19 23:52 12/12/19 23:52 - General General appearance: Alert In distress: None - HEENT Head: Normocephalic, Atraumatic Eyes: Normal, Other - No visual field deficits Extraocular movements intact: Yes Pupils: PERRL Visual acuity- Right eye: 20/20 Visual acuity- Left eye: 20/20 Visual acuity- Both eyes: 20/25 Corrective lenses worn: Yes - Respiratory Respiratory status: No respiratory distress Chest status: Nontender Breath sounds: Normal Chest palpation: Normal - Cardiovascular Rhythm: Regular Heart sounds: Normal auscultation Murmur: No Friction rub: No Gallop: None auscultated - Abdominal Inspection: Normal Distension: No distension Bowel sounds: Normal Tenderness: Nontender - Abdomen soft Organomegaly: No organomegaly - Back Back: Normal, Nontender - Extremities General upper extremity: Normal inspection General lower extremity: Normal inspection - Neurological Neuro grossly intact: Yes Orientation: AAOx4 Eduardo Coma Scale Eye Opening: Spontaneous Eduardo Coma Scale Verbal: Oriented Ellsworth Coma Scale Motor: Obeys Commands Eduardo Coma Scale Total: 15 - Psychological Associated symptoms: Normal affect, Normal mood - Skin Skin Temperature: Warm Skin Moisture: Dry Skin Color: Normal Course - Re-evaluation Re-evalutation: 12/13/19 03:44 Results of ED MSE discussed with patient. Patient asked several times if there was any evidence of a tumor seen on head CT. This MD repeatedly attempted to reassure the patient there was no apparent evidence of a tumor on the CAT scan. This MD also encouraged patient to follow-up with her PCP as she suggested if her symptoms continued. This MD also recommended to the patient that she follow-up with her eye doctor for a funduscopic exam. All questions were answered prior to discharge. Emergency signs and symptoms, reasons to return to the emergency department discussed with patient. - Vital Signs Vital signs: Temp Pulse Resp BP Pulse Ox 97.9 F 73 14 110/60 97 12/13/19 03:45 12/13/19 03:45 12/13/19 03:45 12/13/19 03:45 12/13/19 03:45 - Laboratory Result Diagrams: 12/13/19 00:34 07/11/20 00:34 Laboratory results interpreted by me: 12/13/19 00:34 WBC 12.7 H Absolute Eos (auto) 0.7 H - Diagnostic Test Radiology reviewed: Reports reviewed - EKG Interpretation by Me Additional EKG results interpreted by me: 12/13/19 03:46 EKG obtained on 12/13/2019 at 00 36 hours was interpreted by this MD. Findings: Normal sinus rhythm, rate 88, normal axis, P waves preceding QRS complexes, QRS complexes appear narrow, there are no obvious patterns of ST segment elevation or depression present to suggest acute myocardial ischemia or infarction. Findings: Normal sinus rhythm with nonspecific ST segments. Discharge - Discharge Clinical Impression: Change in vision Disposition: HOME, SELF-CARE Additional Instructions: Follow-up with your primary care provider on 12/15/2019. Call your eye doctor on 12/15/2019 to schedule a follow-up appointment for an eye exam. Return to the Emergency Department without delay if any worse. HOME CARE INSTRUCTIONS & INFORMATION: Thank you for choosing us for your medical needs. We hope you're satisfied with the care you received. After you leave, you must properly care for your problem and, at the same time, observe its progress. Any condition can change. Some illnesses can change rapidly over hours or days. If your condition worsens, return to the Emergency Department or see your physician promptly. ABOUT YOUR X-RAYS AND EKG'S: If you had an EKG or X-rays taken, they have been read by the Emergency Physician. The X-rays and EKG's will also be read by a Radiologist or Parking Manager within 24 hours. If discrepancies are noted, you will be notified by telephone. Please be certain the ED has a correct telephone number & address where you can be reached. Also, realize that some fractures or abnormalities do not show up on initial X-rays. If your symptoms continue, see your physician. ABOUT YOUR LABORATORY TEST: If you had laboratory tests, the results have been reviewed by the Emergency Physician. Some test results (for example cultures) may not be available for several days. You will be contacted if any test result shows you need additional treatment. Please be certain the ED has a correct telephone number and address where you can be reached. ABOUT YOUR MEDICATIONS: You will receive instructions on how to take your medicine on the prescription label you receive. Additional information may be provided by the Pharmacy. If you have questions afterwards, call the ED for clarification or further instructions. Some prescribed medications may cause drowsiness. Do not perform tasks such as driving a car or operating machinery without consulting your Pharmacist. If you feel you need a refill of pain medication, your condition will need re-evaluation. Please do not call for a refill of any medication. ABOUT YOUR SIGNATURE: Signature of this document acknowledges to followin. Understanding that you received emergency treatment and that you may be r eleased before al medical problems are known or treated. Please be certain the ED has a correct phone number & address where you can be reached. 2. Acknowledgement that you will arrange for follow-up care as recommended. 3. Authorization for the Emergency Physician to provide information to your follow-up Physician in order to maximize your care. AT ANY TIME, IF YOUR SYMPTOMS CHANGE SIGNIFICANTLY OR WORSEN OR YOU DEVELOP NEW SYMPTOMS, RETURN TO THE EMERGENCY DEPARTMENT IMMEDIATELY FOR RE-EVALUATION. OUR GOAL IS TO PROVIDE EXCELLENT MEDICAL CARE! WE HOPE THAT WE HAVE MET YOUR EXPECTATIONS DURING YOUR EMERGENCY DEPARTMENT VISIT AND THAT YOU FEEL YOU HAVE RECEIVED EXCELLENT CARE! Referrals: SHARON DOMINGUEZ MD [Primary Care Provider] - 12/15/19 I personally performed the services described in the documentation, reviewed and edited the documentation which was dictated to the scribe in my presence, and it accurately records my words and actions.
--- NOTE | 2019-12-13 09:59 | EKG REPORT ---
SEVERITY:- NORMAL ECG - SINUS RHYTHM : Confirmed by: Jose F Cline MD 13-Dec-2019 09:58:04
== END 2019-12-13 04:09 | disposition home or self-care (01) ==
LOC: ER 23:40
DX: H53.8 Other visual disturbances (principal); Z88.8 Allergy status to other drugs, medicaments and biological substances; Z87.891 Personal history of nicotine dependence
CPT/HCPCS: 36415; 70450; 71045; 80053; 80307; 82550; 84484; 84703; 85025; 93005; 93010; 99284